=== PATIENT | female | born 1960 | race Caucasian/White ===

== ENCOUNTER 2021-08-01 17:53 | Emergency (ER) | payer BC ==
[~2021-08-01] VITALS: Ht 167.6 cm; Wt 62.7 kg
--- NOTE | 2021-08-01 18:19 | NUR ---
PT ROOMED IN BED 11. ASSUMED CARE OF PT.
[2021-08-01] MEDS ORDERED: normal saline 1000ml 1,000 ML IV ONE ×2 (18:25→18:30)
[2021-08-01] MEDS ORDERED: acetaminophen 325mg tablet PO ONE (18:25)
[2021-08-01 18:26] LABS: BASOPHILS # (AUTO) 0.1 X10'3 (0-0.2); BASOPHILS % (AUTO) 0.6 % (0-1); EOSINOPHILS % (AUTO) 0 % (0-6); HEMOGLOBIN 12.2 g/dl (12.0-16.0); LYMPHOCYTES # (AUTO) 1.1 X10'3 (1.1-4.8); LYMPHOCYTES % (AUTO) 6.6 % (21-51); MEAN CORPUSCULAR HEMOGLOBIN 30.1 PG (27.0-31.0); MEAN CORPUSCULAR HGB CONC 33.1 g/dL (33.0-36.5); MEAN CORPUSCULAR VOLUME 90.9 FL (78-98); MEAN PLATELET VOLUME 8.6 FL (7.4-10.4); MONOCYTES # (AUTO) 1.2 X10'3 (0-0.9); MONOCYTES % (AUTO) 7.3 % (2-12); NEUTROPHILS # (AUTO) 14.4 X10'3 (1.8-7.7); NEUTROPHILS % (AUTO) 85.5 % (42-75); PLATELET COUNT 368 X10'3 (140-440); RED BLOOD COUNT 4.07 X10'6 (4.20-5.60); RED CELL DISTRIBUTION WIDTH 13.4 % (11.5-14.5); WHITE BLOOD COUNT 16.8 X10'3 (4.5-11.0)
[2021-08-01 18:29] LABS: CLARITY,URINE SLIGHTLY CLOUDY (Clear); COLOR,URINE YELLOW (Yellow); GLUCOSE, URINE NEGATIVE (Neg); KETONES,URINE 15 mg/dl (Neg); LEUKOCYTE ESTERASE ,URINE SMALL (Neg); NITRITES, URINE NEGATIVE (Neg); OCCULT BLOOD,URINE SMALL (Neg); PROTEIN,URINE 30 mg/dl (Neg); UROBILINOGEN,URINE 0.2 E.U/dL (0.2-1.0)
[2021-08-01] MEDS ORDERED: cefTRIAXone 1g/NS 100ml IVPB 100 ML IV ONE (18:30)
[2021-08-01 18:36] LABS: UA COLLECTION TYPE CLN CATCH MIDSTREAM
[2021-08-01 18:41] LABS: ALANINE AMINOTRANSFERASE 53 U/L (12-78); ALBUMIN 3.1 G/DL (3.4-5.0); ALBUMIN/GLOBULIN RATIO 0.6 (1.1-1.5); ALKALINE PHOSPHATASE 106 IU/L (46-116); ANION GAP 9 (8-16); ASPARTATE AMINO TRANSFERASE 39 U/L (10-37); BILIRUBIN,TOTAL 0.5 MG/DL (0.1-1.0); BLOOD UREA NITROGEN 13 MG/DL (7-18); BUN/CREATININE RATIO 12.7 (6.6-38.0); CALCIUM 8.9 MG/DL (8.5-10.1); CHLORIDE 92 MMOL/L (99-107); CREATININE 1.02 MG/DL (0.40-0.90); GLUCOSE 114 MG/DL (70-104); POTASSIUM 4.7 MMOL/L (3.5-5.1); SODIUM 130 MMOL/L (135-145); TOTAL CARBON DIOXIDE 29.2 MMOL/L (24-32); TOTAL PROTEIN 8.4 G/DL (6.4-8.2); eGFR 55 ML/MIN
[2021-08-01 18:53] LABS: BACTERIA,URINE 1+ /HPF (Neg); SQUAMOUS EPITHELIAL CELL,UR MODERATE /LPF (FEW)
[2021-08-01 18:56] LABS: WBC CLUMPS,URINE MODERATE /HPF (NEGATIVE); WBC,URINE 30-50 /HPF (0-4)
[2021-08-01 19:23] LABS: TOTAL CELLS COUNTED 100
[2021-08-01 19:24] LABS: LARGE PLATELETS FEW; PLATELET ESTIMATE NORMAL
[2021-08-01] MEDS ORDERED: cephalexin 500mg capsule PO ONE (20:45)
[2021-08-01] MEDS ORDERED: CEPH-585 PO (21:02)
[2021-08-01 21:29] VITALS: BP 104/54
== END 2021-08-01 21:31 | disposition home or self-care (01) ==
LOC: ER 17:54
DX: N39.0 Urinary tract infection, site not specified (principal); Z20.822 Contact with and (suspected) exposure to COVID-19; Z90.710 Acquired absence of both cervix and uterus
CPT/HCPCS: 36415; 71045; 80053; 81001; 83605; 84145; 85007; 85025; 87040; 87088; 87502; 87503; 87635; 96365; 99285; C9803; J0696; J7030